=== PATIENT | female | born 1945 | race Caucasian/White ===

== ENCOUNTER → 2023-12-25 13:18 | Outpatient (REF) | payer OTHER, SELFPAY | LOC: WDC 13:18 | PROVIDERS: ATTENDING PHYSICIAN Internal Medicine; FAMILY PHYSICIAN Family Medicine | DX: Z12.31 Encounter for screening mammogram for malignant neoplasm of breast (principal) | CPT/HCPCS: 77063; 77067 ==

== ENCOUNTER → 2025-04-25 14:29 | Outpatient (REF) | payer OTHER, SELFPAY | LOC: WDC 14:29 | PROVIDERS: ATTENDING PHYSICIAN Family Medicine | DX: Z78.0 Asymptomatic menopausal state (principal); Z12.31 Encounter for screening mammogram for malignant neoplasm of breast | CPT/HCPCS: 77063; 77067; 77080 ==

== ENCOUNTER → 2025-05-25 14:03 | Outpatient (REF) | payer OTHER, SELFPAY | LOC: MRI 3T 14:03 | PROVIDERS: ATTENDING PHYSICIAN Family Medicine | DX: R41.3 Other amnesia (principal) | CPT/HCPCS: 70553; A9575 ==